=== PATIENT | male | born 1980 | race Caucasian/White ===

== ENCOUNTER 2017-11-20 16:13 | Emergency (ER) | payer BC ==
[~2017-11-20] VITALS: Ht 177.8 cm; Wt 83.9 kg
[2017-11-20 16:13] VITALS: BP 118/94
== END 2017-11-20 17:20 | disposition home or self-care (01) ==
LOC: ER 16:16
DX: R41.82 Altered mental status, unspecified (principal); F14.10 Cocaine abuse, uncomplicated
CPT/HCPCS: 99283; A4606; Z7610